=== PATIENT | female | born 1985 | race Caucasian/White ===

== ENCOUNTER 2016-08-14 07:47 | Emergency (ER) | payer SELFPAY ==
[~2016-08-14] VITALS: Ht 162.6 cm; Wt 63.0 kg
[~2016-08-14 07:47] MED LIST: LORTAB 5-325 M1 EACH PO; MIRALAX17 GM PO; MOTRIN800 MG PO; NAPROSYN500 MG PO; PERCOCET 5/31 TABLET PO; ULTRAM50 MG PO; VALIUM2 MG PO; VENTOLIN HFA18 GM IH
[2016-08-14 08:53] LABS: EOSINOPHIL (%) 1.7 % (0-5); EOSINOPHIL COUNT 0.1 K/uL (0-0.3); HEMATOCRIT 31.8 % (36.0-46.0); IMMATURE GRANULOCYTE (%) 0.2 % (0.0-0.7); INSTRUMENT ABS NEUTROPHIL CT 5.9 K/uL; MCH 31.4 PG (29.0-34.0); MCV 92.4 FL (83-99); MEAN PLAT.VOLUME 11.2 uM^3 (9.5-12.4); MONOCYTE (%) 3.7 % (3-12); MONOCYTE COUNT 0.3 K/uL (0-0.8); NEUTROPHIL (%) 70.4 % (45-76); NEUTROPHIL COUNT 5.9 K/uL (1.8-6.4); PLATELET COUNT 154 K/uL (156-360); RBC DIS.WIDTH-CV 13.6 % (11.8-14.6); RBC DIS.WIDTH-SD 45.5 % (39-53); RED BLOOD COUNT 3.44 M/uL (3.80-5.20); WHITE BLOOD COUNT 8.4 K/uL (4.1-10.2)
[2016-08-14 09:03] LABS: CHLORIDE 106 mEq/L (99-109); POTASSIUM 3.9 mEq/L (3.7-5.4); SODIUM 135 mEq/L (136-147)
[2016-08-14 09:04] LABS: GLUCOSE 128 mg/dL (70-99)
[2016-08-14 09:06] LABS: ANION GAP 7 MEQ/L (2-14)
[2016-08-14 09:08] LABS: GFR ESTIMATE (CALCULATED) > 59 mL/min/
[2016-08-14 09:09] LABS: UREA NITROGEN (BUN) 17 mg/dL (9-23)
[2016-08-14 09:34] LABS: QUANTITATIVE HCG 106530.8 MIU/ML
[2016-08-14 10:22] VITALS: BP 108/63
== END 2016-08-14 10:23 | disposition home or self-care (01) ==
LOC: EME 07:47
PROVIDERS: Emergency Medicine
DX: O20.0 Threatened abortion (principal); Z3A.12 12 weeks gestation of pregnancy; O99.331 Smoking (tobacco) complicating pregnancy, first trimester; F17.200 Nicotine dependence, unspecified, uncomplicated
CPT/HCPCS: 76801; 80048; 84702; 85025; 86900; 86901; 99281; 99283

== ENCOUNTER 2016-11-10 22:29 | Emergency (ER) | payer OTHER ==
[~2016-11-10] VITALS: Ht 162.6 cm; Wt 64.0 kg
[2016-11-11 00:55] LABS: ADD MIUA? YES; BILIRUBIN NEGATIVE; BLOOD MODERATE; COLOR STRAW ((YELLOW)); GLUCOSE (STRIP) NEGATIVE; KETONES NEGATIVE; LEUKOCYTES SMALL; NITRITE NEGATIVE; PROTEIN (STRIP) NEGATIVE; SPECIFIC GRAVITY 1.013 (1.000-1.030); UROBILINOGEN 0.2 MG/DL (0.2-1.0)
[2016-11-11 01:04] LABS: BACTERIA 1+ /HPF; EPITHELIAL CELLS 1+ /HPF; MUCUS TRACE /LPF; WHITE BLOOD CELLS 0-5 /HPF (0-5)
[2016-11-11 01:44] VITALS: BP 110/73
[2016-11-11] MEDS ORDERED: INDOCIN50 MG PO (01:44)
[2016-11-11] MEDS ORDERED: NORCO 10/3251 TABLET PO (01:44)
[2016-11-11] MEDS ORDERED: VALIUM2 MG PO (01:44)
== END 2016-11-11 01:47 | disposition home or self-care (01) ==
LOC: EME 22:29
PROVIDERS: Physician Assistant
DX: S06.0X1A Concussion with loss of consciousness of 30 minutes or less, initial encounter (principal); S00.83XA Contusion of other part of head, initial encounter; S89.82XA Other specified injuries of left lower leg, initial encounter; S16.1XXA Strain of muscle, fascia and tendon at neck level, initial encounter; V94.0XXA Hitting object or bottom of body of water due to fall from watercraft, initial encounter; Y93.19 Activity, other involving water and watercraft; J45.909 Unspecified asthma, uncomplicated; F17.200 Nicotine dependence, unspecified, uncomplicated
CPT/HCPCS: 70450; 72125; 72131; 73564; 81003; 99281; 99285

== ENCOUNTER 2017-01-27 13:55 | Emergency (ER) | payer OTHER ==
[~2017-01-27] VITALS: Ht 160 cm; Wt 61.2 kg
[~2017-01-27 13:55] MED LIST changes: +INDOCIN50 MG PO; +NORCO 10/3251 TABLET PO
[2017-01-27] MEDS ORDERED: BACTROBAN OINTM22 GM TP (14:39)
[2017-01-27 14:54] VITALS: BP 124/73
== END 2017-01-27 14:56 | disposition home or self-care (01) ==
LOC: EME 13:55
PROC: 3E0234Z Introduction of Serum, Toxoid and Vaccine into Muscle, Percutaneous Approach (ICD-10-PCS; principal; 2017-01-27)
DX: S50.862A Insect bite (nonvenomous) of left forearm, initial encounter (principal); W57.XXXA Bitten or stung by nonvenomous insect and other nonvenomous arthropods, initial encounter; Z23 Encounter for immunization; F17.200 Nicotine dependence, unspecified, uncomplicated
CPT/HCPCS: 99281; 99284

== ENCOUNTER 2017-08-22 19:32 | Emergency (ER) | payer SELFPAY ==
[~2017-08-22] VITALS: Ht 160 cm; Wt 61.6 kg
[~2017-08-22 19:32] MED LIST changes: +BACTROBAN OINTM22 GM TP
[2017-08-22] MEDS ORDERED: AUGMENTIN875 MG PO (20:44)
[2017-08-22] MEDS ORDERED: ULTRACET1 TABLET PO (20:44)
[2017-08-22] MEDS ORDERED: LIDOCAINE20 MG/1 M5 PO (20:44)
[2017-08-22] MEDS ORDERED: INDOCIN50 MG PO (20:44)
[2017-08-22 21:59] VITALS: BP 128/99
== END 2017-08-22 21:50 | disposition home or self-care (01) ==
LOC: EXP 19:32 → EME 19:32 → EXP 21:50
DX: K08.89 Other specified disorders of teeth and supporting structures (principal); J45.909 Unspecified asthma, uncomplicated; F17.200 Nicotine dependence, unspecified, uncomplicated; Z91.041 Radiographic dye allergy status
CPT/HCPCS: 99281; 99284; J1100; J1885; J3010; J7030